=== PATIENT | female | born 2000 | race Hispanic/Latino ===

== ENCOUNTER 2023-04-29 17:53 | Day surgery (SDC) | payer OTHER ==
[2023-04-29 18:34] VITALS: BMI 31.3
[2023-04-29 19:20] LABS: Creatinine, Urine 105.7 mg/dL (47-110)
[2023-04-29 19:37] LABS: #Monocytes 0.6 10x3/uL (0.0-1.1); #Neutrophils 6.2 10x3/uL (1.5-8.4); %Basophils 0.5 % (0.0-2.0); %Eosinophils 0.2 % (0.0-6.0); %Lymphocytes 20.3 % (18.0-47.0); %Monocytes 7.3 % (0.0-10.0); %Neutrophils 71.2 % (40.0-75.0); Hematocrit 26.9 % (34.9-44.5); Hemoglobin 8.6 g/dL (12.0-15.5); Mean Corpuscular Hemoglobin 24.8 pg (27.0-33.0); Mean Corpuscular Volume 77.5 fl (81.6-98.3); Platelet Count 289 10x3/uL (150-450); Red Blood Cell (RBC) Count 3.47 10x6/uL (3.90-5.03); White Blood Cell (WBC) Count 8.7 10x3/uL (3.5-10.5)
[2023-04-29 19:47] LABS: ALT (SGPT) Less than 7 U/L (8-55); AST (SGOT) 20 U/L (5-34); Alkaline Phosphatase 361 U/L (40-110); Anion Gap 12 mmol/L (10-20); BUN (Urea Nitrogen) 6 mg/dL (7.0-18.7); Bilirubin, Total 0.4 mg/dL (0.2-1.2); Calc. Creatinine Clearance 135 mL/min (70-130); Calcium 8.6 mg/dL (7.8-10.44); Carbon Dioxide 18 mmol/L (22-29); Chloride 110 mmol/L (98-107); Estimated GFR 124; Globulin 2.9 g/dL (2.4-3.5); Glucose 102 mg/dL (70-105); Potassium 4.3 mmol/L (3.5-5.1); Protein, Total 5.9 g/dL (6.0-8.3); Sodium 136 mmol/L (136-145)
[2023-04-29] MEDS ORDERED: NIFEdipine XL 30 MG ER.TAB PO SCH (22:30)
[2023-04-29 22:41] VITALS: BP 156/102
== END 2023-04-29 22:45 | disposition home or self-care (01) ==
LOC: CSHLD/OP 17:53
PROVIDERS: ATTEND Family Medicine
DX: O99.891 Other specified diseases and conditions complicating pregnancy (principal); R03.0 Elevated blood-pressure reading, without diagnosis of hypertension; R60.0 Localized edema; Z3A.36 36 weeks gestation of pregnancy
CPT/HCPCS: 36415; 80053; 82570; 84156; 85025; 93970

== ENCOUNTER 2023-05-01 11:16 | Inpatient (IN) | payer OTHER ==
[~2023-05-01 11:16] MED LIST: Bupivacaine 0.25% HCL 30 ML VIAL ONE; Lidocaine 2% MPF 10 ML AMP (For Epidural Use) ONE; ePHEDrine Sulfate 50 MG/10 ML VIAL ONE
[2023-05-01] MEDS ORDERED: Methylergonovine 0.2 MG/ML VIAL IM PRN (12:35)
[2023-05-01] MEDS ORDERED: Misoprostol 200 MCG TAB PR PRN (12:35)
[2023-05-01] MEDS ORDERED: Diphenoxylate HCl/Atropine Tablet PO PRN (12:35)
[2023-05-01] MEDS ORDERED: Promethazine HCl 25 MG/ML VIAL IM PRN (12:35)
[2023-05-01] MEDS ORDERED: Tranexamic Acid 1,000 MG/10 ML VIAL IVP PRN (12:35)
[2023-05-01] MEDS ORDERED: Lorazepam 2 MG/ML VIAL SLOW IVP PRN (12:35)
[2023-05-01] MEDS ORDERED: Ondansetron PF 4 MG/2 ML Vial IVP PRN (12:35)
[2023-05-01] MEDS ORDERED: Acetaminophen 500 MG TAB PO PRN (12:35)
[2023-05-01] MEDS ORDERED: hydrALAZINE 20 MG/ML VIAL SLOW IVP PRN ×2 (12:35)
[2023-05-01] MEDS ORDERED: fentaNYL 50 mcg/mL 1 mL Vial SLOW IVP PRN (12:35)
[2023-05-01] MEDS ORDERED: Lidocaine 1% (PF) 30 ML VIAL SC PRN (12:35)
[2023-05-01] MEDS ORDERED: Calcium Gluc 4.6 MEQ/10 ML (100 MG/ML) SLOW IVP PRN ×2 (12:35→14:00)
[2023-05-01] MEDS ORDERED: Ibuprofen 800 MG TAB PO PRN (12:35)
[2023-05-01] MEDS ORDERED: HYDROcodone/Acetaminophen 5/325 mg Tablet PO PRN (12:35)
[2023-05-01] MEDS ORDERED: Labetalol HCl 100 MG/20 ML VIAL SLOW IVP PRN ×2 (12:35)
[2023-05-01 12:42] VITALS: BMI 32.5
[2023-05-01] MEDS ORDERED: Oxytocin 30 units/NS 500 ML 500 ML IV SCH ×3 (12:45)
[2023-05-01] MEDS ORDERED: Lactated Ringer's 1,000 ML IV SCH (12:45)
[2023-05-01 12:57] LABS: Creatinine, Urine 195.41 mg/dL (47-110)
[2023-05-01 13:15] LABS: #Eosinphils 0.1 10x3/uL (0.0-0.5); #Monocytes 0.9 10x3/uL (0.0-1.1); #Neutrophils 7.1 10x3/uL (1.5-8.4); %Basophils 0.4 % (0.0-2.0); %Lymphocytes 22.1 % (18.0-47.0); %Monocytes 8.7 % (0.0-10.0); %Neutrophils 67.3 % (40.0-75.0); Hemoglobin 8.9 g/dL (12.0-15.5); Mean Corpuscular HGB CONC 31.8 g/dL (32.0-36.0); Mean Corpuscular Hemoglobin 24.7 pg (27.0-33.0); Mean Corpuscular Volume 77.6 fl (81.6-98.3); Mean Platelet Volume 11.8 fl (7.4-10.4); Platelet Count 324 10x3/uL (150-450); RBC Distribution Width 15.1 % (11.5-14.5); Red Blood Cell (RBC) Count 3.61 10x6/uL (3.90-5.03); White Blood Cell (WBC) Count 10.5 10x3/uL (3.5-10.5)
[2023-05-01 13:23] LABS: ALT (SGPT) 7 U/L (8-55); AST (SGOT) 21 U/L (5-34); Alkaline Phosphatase 409 U/L (40-110); Anion Gap 16 mmol/L (10-20); BUN (Urea Nitrogen) 10 mg/dL (7.0-18.7); Bilirubin, Total 0.3 mg/dL (0.2-1.2); Calc. Creatinine Clearance 144 mL/min (70-130); Calcium 8.5 mg/dL (7.8-10.44); Carbon Dioxide 18 mmol/L (22-29); Chloride 108 mmol/L (98-107); Estimated GFR 127; Globulin 2.7 g/dL (2.4-3.5); Glucose 78 mg/dL (70-105); Potassium 4.5 mmol/L (3.5-5.1); Protein, Total 5.7 g/dL (6.0-8.3); Sodium 137 mmol/L (136-145)
[2023-05-01 13:42] LABS: HBSAg Index 0.13 S/CO (0-0.99); Hep B Surf Ag - L&D Non-Reactive S/CO (NonReactive)
[2023-05-01 13:44] LABS: Syphilis Antibody Nonreactive (Nonreactive); Syphilis Antibody Index 0.05 S/CO (<1.00 Non-Reactive)
[2023-05-01] MEDS: hydrALAZINE 20 MG/ML VIAL SLOW IVP PRN ×2 (13:54→17:38)
[2023-05-01] MEDS: Magnesium Sulfate 20 gm/500 ml 20 GM/500 ML BAG IVPB SCH (13:57)
[2023-05-01] MEDS: Penicillin G Potassium 5 MILL.UNITS in Sodium Chloride 0.9% 100 ML IVPB SCH ×2 (15:41→19:05)
[2023-05-01] MEDS: Penicillin G 2.5 MILL.units 2.5 MILL.UNITS in Premix Bag 1 BAG IVPB SCH (23:38)
[2023-05-02] MEDS: Penicillin G 2.5 MILL.units 2.5 MILL.UNITS in Premix Bag 1 BAG IVPB SCH ×5 (05:45→19:44)
[2023-05-02] MEDS: Magnesium Sulfate 20 gm/500 ml 20 GM/500 ML BAG IVPB SCH ×2 (10:26→21:27)
[2023-05-02] MEDS ORDERED: Misoprostol 100 MCG TAB ONE (15:24)
[2023-05-02] MEDS: Misoprostol 100 MCG TAB VAG SCH ×4 (15:35→19:53)
[2023-05-02] MEDS ORDERED: Misoprostol 100 MCG TAB VAG SCH (23:30)
[2023-05-03] MEDS: Penicillin G 2.5 MILL.units 2.5 MILL.UNITS in Premix Bag 1 BAG IVPB SCH ×4 (03:45→16:12)
[2023-05-03] MEDS: Magnesium Sulfate 20 gm/500 ml 20 GM/500 ML BAG IVPB SCH ×2 (06:28→17:03)
[2023-05-03] MEDS ORDERED: fentaNYL/Ropivacaine Epidural 100 ML ONE (09:06)
[2023-05-03] MEDS ORDERED: CEFAZOLIN 2 GM VIAL ONE (17:32)
[2023-05-03] MEDS ORDERED: Azithromycin 500 MG VIAL ONE (17:32)
[2023-05-03] MEDS ORDERED: fentaNYL 50 mcg/mL 1 mL Vial ONE ×3 (18:03→21:33)
[2023-05-03] MEDS ORDERED: diphenhydrAMINE 50 MG/ML VIAL IVP PRN (18:11)
[2023-05-03] MEDS ORDERED: Ondansetron PF 4 MG/2 ML Vial IVP PRN ×3 (18:11→19:56)
[2023-05-03] MEDS ORDERED: Ketorolac Tromethamine 30 MG/ML VIAL IVP PRN (18:11)
[2023-05-03] MEDS ORDERED: Naloxone HCl 0.4 mg/ml Vial IV PRN (18:11)
[2023-05-03] MEDS ORDERED: Promethazine HCl 25 MG/ML VIAL IM PRN ×2 (18:11→19:56)
[2023-05-03] MEDS ORDERED: Meperidine HCl/PF 25 MG/ML VIAL SLOW IVP PRN (18:11)
[2023-05-03] MEDS ORDERED: Moisturizing Cream (Eucerin) 113 GM JAR TOP PRN (18:11)
[2023-05-03] MEDS ORDERED: Naloxone HCl 0.4 mg/ml Vial IVP PRN ×2 (18:11)
[2023-05-03] MEDS ORDERED: Promethazine HCl 25 MG SUPP PR PRN (18:11)
[2023-05-03] MEDS ORDERED: Dexamethasone 4 mg/ml Vial ONE (18:15)
[2023-05-03] MEDS ORDERED: Communication Order-Pharmacy FS SCH (18:15)
[2023-05-03] MEDS ORDERED: Oxytocin 10 UNITS/ML VIAL ONE (18:29)
[2023-05-03] MEDS: Carboprost 250 MCG/ML AMP IM PRN ×2 (18:36→18:50)
[2023-05-03] MEDS ORDERED: Misoprostol 200 MCG TAB ONE (18:37)
[2023-05-03] MEDS ORDERED: Midazolam HCl 2 mg/2 ml Vial ONE (18:43)
[2023-05-03] MEDS: fentaNYL 50 mcg/mL 1 mL Vial SLOW IVP PRN ×2 (19:46→21:34)
[2023-05-03] MEDS ORDERED: Labetalol HCl 100 MG/20 ML VIAL SLOW IVP PRN ×2 (19:56→22:50)
[2023-05-03] MEDS ORDERED: Bisacodyl 10 MG SUPP PR PRN (19:56)
[2023-05-03] MEDS ORDERED: Calcium Gluc 4.6 MEQ/10 ML (100 MG/ML) SLOW IVP PRN (19:56)
[2023-05-03] MEDS ORDERED: diphenhydrAMINE 25 MG CAP PO PRN (19:56)
[2023-05-03] MEDS ORDERED: Simethicone Chewable 80 MG TAB PO PRN (19:56)
[2023-05-03] MEDS ORDERED: hydrALAZINE 20 MG/ML VIAL SLOW IVP PRN ×2 (19:56→22:49)
[2023-05-03] MEDS ORDERED: Boostrix 0.5 ML (Tdap) VIAL (>/=7 yrs of age) IM ONE (19:56)
[2023-05-03] MEDS ORDERED: Lanolin Ointment 7 GM TUBE TOP PRN (19:56)
[2023-05-03] MEDS ORDERED: Lorazepam 2 MG/ML VIAL SLOW IVP PRN (19:56)
[2023-05-03] MEDS: Labetalol HCl 100 MG TAB PO SCH (21:47)
[2023-05-03] MEDS ORDERED: Diphenoxylate HCl/Atropine Tablet PO PRN (22:49)
[2023-05-03 23:16] LABS: Hematocrit 29.7 % (34.9-44.5); Hemoglobin 9.4 g/dL (12.0-15.5)
[2023-05-04] MEDS: Ketorolac Tromethamine 30 MG/ML VIAL IVP SCH ×3 (01:13→13:13)
[2023-05-04] MEDS ORDERED: Magnesium Sulfate 20 gm/500 ml 20 GM/500 ML BAG ONE ×2 (02:35→12:06)
[2023-05-04] MEDS: Magnesium Sulfate 20 gm/500 ml 20 GM/500 ML BAG IVPB SCH (02:39)
[2023-05-04 04:28] LABS: Hematocrit 27.5 % (34.9-44.5); Hemoglobin 8.7 g/dL (12.0-15.5); Mean Corpuscular HGB CONC 31.6 g/dL (32.0-36.0); Mean Corpuscular Hemoglobin 24.9 pg (27.0-33.0); Mean Corpuscular Volume 78.8 fl (81.6-98.3); Mean Platelet Volume 11.4 fl (7.4-10.4); Platelet Count 328 10x3/uL (150-450); RBC Distribution Width 15.5 % (11.5-14.5); Red Blood Cell (RBC) Count 3.49 10x6/uL (3.90-5.03); White Blood Cell (WBC) Count 20.5 10x3/uL (3.5-10.5)
[2023-05-04] MEDS: Labetalol HCl 100 MG TAB PO SCH ×3 (05:50→22:25)
[2023-05-04] MEDS: Ferrous Sulfate 325 MG TAB PO SCH ×3 (09:12→22:26)
[2023-05-04] MEDS: Prenatal Vitamin 1 TAB PO SCH (09:12)
[2023-05-04] MEDS: Docusate 100 MG CAP PO SCH ×3 (09:12→22:25)
[2023-05-04] MEDS: HYDROcodone/Acetaminophen 5/325 mg Tablet PO PRN ×3 (09:17→18:40)
[2023-05-04] MEDS: Ibuprofen 800 MG TAB PO SCH (22:26)
[2023-05-05] MEDS: HYDROcodone/Acetaminophen 5/325 mg Tablet PO PRN ×5 (00:12→22:35)
[2023-05-05] MEDS: Ibuprofen 800 MG TAB PO SCH ×3 (06:01→21:15)
[2023-05-05] MEDS: Labetalol HCl 100 MG TAB PO SCH ×3 (06:02→21:15)
[2023-05-05] MEDS: Ferrous Sulfate 325 MG TAB PO SCH ×2 (09:01→21:15)
[2023-05-05] MEDS: Prenatal Vitamin 1 TAB PO SCH ×2 (09:01→09:07)
[2023-05-05] MEDS: Docusate 100 MG CAP PO SCH ×2 (09:01→21:15)
[2023-05-06] MEDS: Ibuprofen 800 MG TAB PO SCH (05:02)
[2023-05-06] MEDS: HYDROcodone/Acetaminophen 5/325 mg Tablet PO PRN ×2 (05:02→10:08)
[2023-05-06] MEDS: Labetalol HCl 100 MG TAB PO SCH (05:02)
[2023-05-06] MEDS: Prenatal Vitamin 1 TAB PO SCH (08:33)
[2023-05-06] MEDS: Ferrous Sulfate 325 MG TAB PO SCH (08:33)
[2023-05-06] MEDS: Docusate 100 MG CAP PO SCH (08:33)
[2023-05-06 11:47] VITALS: BP 141/89; TEMP 98.5
== END 2023-05-06 12:50 | disposition home or self-care (01) | DRG 788 ==
LOC: CSHLD 11:16 → CSHPED 05-04 20:40
PROVIDERS: ADMIT Family Medicine; ATTEND Family Medicine
PROC: 10D00Z1 Extraction of Products of Conception, Low, Open Approach (ICD-10-PCS; principal; 2023-05-03)
PROC: 3E0P7VZ Introduction of Hormone into Female Reproductive, Via Natural or Artificial Opening (ICD-10-PCS; 2023-05-03)
PROC: 10907ZC Drainage of Amniotic Fluid, Therapeutic from Products of Conception, Via Natural or Artificial Opening (ICD-10-PCS; 2023-05-03)
PROC: 10H07YZ Insertion of Other Device into Products of Conception, Via Natural or Artificial Opening (ICD-10-PCS; 2023-05-03)
DX: O14.14 Severe pre-eclampsia complicating childbirth (principal); Z3A.37 37 weeks gestation of pregnancy; Z37.0 Single live birth; O62.1 Secondary uterine inertia; O69.81X0 Labor and delivery complicated by cord around neck, without compression, not applicable or unspecified
CPT/HCPCS: 36415; 51702; 80053; 82570; 84156; 85014; 85018; 85025; 85027; 86780; 86850; 86900; 86901; 87340; 99284; J0360; J0456; J1100; J1885; J2250; J2540; J2590; J3010; J3475; J3490; S0020

== ENCOUNTER 2023-05-08 03:59 | Inpatient (IN) | payer OTHER ==
[2023-05-08] MEDS ORDERED: Labetalol HCl 100 MG/20 ML VIAL ONE (04:33)
[2023-05-08 04:54] LABS: #Basophils 0.1 10x3/uL (0.0-0.2); #Eosinphils 0.3 10x3/uL (0.0-0.5); #Monocytes 0.7 10x3/uL (0.0-1.1); #Neutrophils 5.5 10x3/uL (1.5-8.4); %Basophils 0.7 % (0.0-2.0); %Eosinophils 3.6 % (0.0-6.0); %Lymphocytes 26.1 % (18.0-47.0); %Monocytes 8.2 % (0.0-10.0); %Neutrophils 61.1 % (40.0-75.0); ALT (SGPT) 58 U/L (8-55); AST (SGOT) 87 U/L (5-34); Albumin 3.2 g/dL (3.5-5.0); Alkaline Phosphatase 225 U/L (40-110); Anion Gap 15 mmol/L (10-20); BUN (Urea Nitrogen) 9 mg/dL (7.0-18.7); Bilirubin, Total 0.4 mg/dL (0.2-1.2); Calc. Creatinine Clearance 0 mL/min (70-130); Calcium 8.5 mg/dL (7.8-10.44); Carbon Dioxide 18 mmol/L (22-29); Chloride 108 mmol/L (98-107); Estimated GFR 126; Globulin 2.5 g/dL (2.4-3.5); Glucose 83 mg/dL (70-105); Hematocrit 24.2 % (34.9-44.5); Hemoglobin 7.6 g/dL (12.0-15.5); Magnesium 1.6 mg/dL (1.6-2.6); Mean Corpuscular HGB CONC 31.4 g/dL (32.0-36.0); Mean Corpuscular Hemoglobin 25.2 pg (27.0-33.0); Mean Corpuscular Volume 80.1 fl (81.6-98.3); Mean Platelet Volume 9.7 fl (7.4-10.4); Platelet Count 460 10x3/uL (150-450); Protein, Total 5.7 g/dL (6.0-8.3); RBC Distribution Width 16.3 % (11.5-14.5); Red Blood Cell (RBC) Count 3.02 10x6/uL (3.90-5.03); Sodium 136 mmol/L (136-145); White Blood Cell (WBC) Count 8.9 10x3/uL (3.5-10.5)
[2023-05-08 05:00] LABS: Troponin I 0.016 ng/mL (< 0.028)
[2023-05-08] MEDS ORDERED: Magnesium 2 GM/50 ML BAG (IN WATER) ONE (05:30)
[2023-05-08] MEDS ORDERED: traMADol HCl 50 MG TAB PO PRN (06:04)
[2023-05-08] MEDS ORDERED: Milk Of Magnesia 30 ML UDCUP PO PRN (06:04)
[2023-05-08] MEDS ORDERED: Ondansetron PF 4 MG/2 ML Vial IVP PRN (06:04)
[2023-05-08] MEDS ORDERED: Bisacodyl 10 MG SUPP PR PRN (06:04)
[2023-05-08] MEDS ORDERED: Boostrix 0.5 ML (Tdap) VIAL (>/=7 yrs of age) IM ONE (06:04)
[2023-05-08] MEDS ORDERED: Calcium Gluc 4.6 MEQ/10 ML (100 MG/ML) SLOW IVP PRN (06:08)
[2023-05-08] MEDS ORDERED: hydrALAZINE 20 MG/ML VIAL SLOW IVP PRN ×2 (06:08)
[2023-05-08] MEDS ORDERED: Lorazepam 2 MG/ML VIAL SLOW IVP PRN (06:08)
[2023-05-08] MEDS ORDERED: Labetalol HCl 100 MG/20 ML VIAL SLOW IVP PRN ×2 (06:08)
[2023-05-08] MEDS ORDERED: Magnesium Sulfate 20 gm/500 ml 20 GM/500 ML BAG IVPB SCH (06:15)
[2023-05-08] MEDS ORDERED: Acetaminophen 500 MG TAB PO PRN (06:27)
[2023-05-08 07:13] VITALS: BMI 29.2
[2023-05-08] MEDS: Docusate 100 MG CAP PO SCH ×2 (09:00→21:05)
[2023-05-08] MEDS: Ferrous Sulfate 325 MG TAB PO SCH ×2 (09:00→17:00)
[2023-05-08] MEDS: NIFEdipine XL 30 MG ER.TAB PO SCH (09:00)
[2023-05-08] MEDS ORDERED: Labetalol HCl 200 MG TAB PO SCH (10:00)
[2023-05-08] MEDS: Labetalol HCl 200 MG TAB PO SCH ×2 (15:09→21:05)
[2023-05-08] MEDS: Ibuprofen 800 MG TAB PO SCH ×2 (15:10→21:05)
[2023-05-08 17:57] LABS: #Eosinphils 0.2 10x3/uL (0.0-0.5); #Monocytes 0.6 10x3/uL (0.0-1.1); %Basophils 0.4 % (0.0-2.0); %Eosinophils 2.6 % (0.0-6.0); %Lymphocytes 21.4 % (18.0-47.0); %Monocytes 7.9 % (0.0-10.0); %Neutrophils 67.3 % (40.0-75.0); Hematocrit 24.5 % (34.9-44.5); Hemoglobin 7.6 g/dL (12.0-15.5); Mean Corpuscular Hemoglobin 25.2 pg (27.0-33.0); Mean Corpuscular Volume 81.4 fl (81.6-98.3); Mean Platelet Volume 9.3 fl (7.4-10.4); Platelet Count 492 10x3/uL (150-450); RBC Distribution Width 16.6 % (11.5-14.5); Red Blood Cell (RBC) Count 3.01 10x6/uL (3.90-5.03); White Blood Cell (WBC) Count 7.4 10x3/uL (3.5-10.5)
[2023-05-08 18:18] LABS: ALT (SGPT) 46 U/L (8-55); AST (SGOT) 58 U/L (5-34); Alkaline Phosphatase 208 U/L (40-110); Anion Gap 15 mmol/L (10-20); BUN (Urea Nitrogen) 7 mg/dL (7.0-18.7); Bilirubin, Total 0.3 mg/dL (0.2-1.2); Calc. Creatinine Clearance 122 mL/min (70-130); Calcium 8.4 mg/dL (7.8-10.44); Carbon Dioxide 19 mmol/L (22-29); Chloride 108 mmol/L (98-107); Estimated GFR 120; Globulin 3.1 g/dL (2.4-3.5); Glucose 101 mg/dL (70-105); Potassium 4.9 mmol/L (3.5-5.1); Protein, Total 6.1 g/dL (6.0-8.3); Sodium 137 mmol/L (136-145)
[2023-05-08] MEDS ORDERED: HYDROcodone/Acetaminophen 5/325 mg Tablet PO PRN (19:23)
[2023-05-08] MEDS ORDERED: Furosemide 20 MG/2 ML VIAL SLOW IVP SCH (20:00)
[2023-05-09 00:37] LABS: #Eosinphils 0.2 10x3/uL (0.0-0.5); #Monocytes 0.6 10x3/uL (0.0-1.1); #Neutrophils 4.1 10x3/uL (1.5-8.4); %Basophils 0.6 % (0.0-2.0); %Eosinophils 3.3 % (0.0-6.0); %Lymphocytes 26.1 % (18.0-47.0); %Monocytes 8.9 % (0.0-10.0); %Neutrophils 60.5 % (40.0-75.0); Hematocrit 23.3 % (34.9-44.5); Hemoglobin 7.4 g/dL (12.0-15.5); Mean Corpuscular HGB CONC 31.8 g/dL (32.0-36.0); Mean Corpuscular Hemoglobin 25.6 pg (27.0-33.0); Mean Corpuscular Volume 80.6 fl (81.6-98.3); Mean Platelet Volume 9.3 fl (7.4-10.4); Platelet Count 487 10x3/uL (150-450); RBC Distribution Width 16.6 % (11.5-14.5); Red Blood Cell (RBC) Count 2.89 10x6/uL (3.90-5.03); White Blood Cell (WBC) Count 6.7 10x3/uL (3.5-10.5)
[2023-05-09 00:57] LABS: ALT (SGPT) 42 U/L (8-55); AST (SGOT) 47 U/L (5-34); Albumin 3.1 g/dL (3.5-5.0); Alkaline Phosphatase 205 U/L (40-110); Anion Gap 14 mmol/L (10-20); BUN (Urea Nitrogen) 8 mg/dL (7.0-18.7); Bilirubin, Total 0.3 mg/dL (0.2-1.2); Calc. Creatinine Clearance 121 mL/min (70-130); Calcium 8.3 mg/dL (7.8-10.44); Carbon Dioxide 20 mmol/L (22-29); Chloride 105 mmol/L (98-107); Estimated GFR 118; Globulin 2.9 g/dL (2.4-3.5); Glucose 108 mg/dL (70-105); Potassium 4.3 mmol/L (3.5-5.1); Sodium 135 mmol/L (136-145)
[2023-05-09 04:29] LABS: #Eosinphils 0.3 10x3/uL (0.0-0.5); #Monocytes 0.7 10x3/uL (0.0-1.1); #Neutrophils 3.9 10x3/uL (1.5-8.4); %Basophils 0.6 % (0.0-2.0); %Eosinophils 3.7 % (0.0-6.0); %Lymphocytes 29.2 % (18.0-47.0); %Monocytes 10.3 % (0.0-10.0); %Neutrophils 55.6 % (40.0-75.0); Hematocrit 23.2 % (34.9-44.5); Hemoglobin 7.2 g/dL (12.0-15.5); Mean Corpuscular Volume 80.6 fl (81.6-98.3); Mean Platelet Volume 9.3 fl (7.4-10.4); Platelet Count 481 10x3/uL (150-450); RBC Distribution Width 16.9 % (11.5-14.5); Red Blood Cell (RBC) Count 2.88 10x6/uL (3.90-5.03)
[2023-05-09 04:36] LABS: ALT (SGPT) 38 U/L (8-55); AST (SGOT) 39 U/L (5-34); Albumin 2.9 g/dL (3.5-5.0); Alkaline Phosphatase 195 U/L (40-110); Anion Gap 13 mmol/L (10-20); BUN (Urea Nitrogen) 7 mg/dL (7.0-18.7); Bilirubin, Total 0.2 mg/dL (0.2-1.2); Calc. Creatinine Clearance 126 mL/min (70-130); Calcium 7.9 mg/dL (7.8-10.44); Carbon Dioxide 20 mmol/L (22-29); Chloride 106 mmol/L (98-107); Estimated GFR 124; Globulin 2.7 g/dL (2.4-3.5); Glucose 99 mg/dL (70-105); Potassium 4.1 mmol/L (3.5-5.1); Protein, Total 5.6 g/dL (6.0-8.3); Sodium 135 mmol/L (136-145)
[2023-05-09] MEDS: Ibuprofen 800 MG TAB PO SCH ×3 (06:19→21:35)
[2023-05-09] MEDS: Ferrous Sulfate 325 MG TAB PO SCH ×2 (08:25→18:24)
[2023-05-09] MEDS: Docusate 100 MG CAP PO SCH ×2 (08:25→21:35)
[2023-05-09] MEDS: Labetalol HCl 200 MG TAB PO SCH ×3 (08:25→21:35)
[2023-05-09] MEDS: NIFEdipine XL 30 MG ER.TAB PO SCH (08:26)
[2023-05-10] MEDS: Ibuprofen 800 MG TAB PO SCH ×2 (06:30→13:54)
[2023-05-10] MEDS: Ferrous Sulfate 325 MG TAB PO SCH (07:57)
[2023-05-10] MEDS: Docusate 100 MG CAP PO SCH (07:58)
[2023-05-10] MEDS: Labetalol HCl 200 MG TAB PO SCH ×2 (07:58→13:54)
[2023-05-10] MEDS: NIFEdipine XL 30 MG ER.TAB PO SCH (07:58)
[2023-05-10 11:35] VITALS: BP 122/70; TEMP 97.6
== END 2023-05-10 14:50 | disposition home or self-care (01) | DRG 776 ==
LOC: CSHERS 03:59 → CSHLD 06:07 → CSHPP 05-09 05:50
PROVIDERS: ADMIT Family Medicine; ATTEND Family Medicine
DX: O14.15 Severe pre-eclampsia, complicating the puerperium (principal); O90.89 Other complications of the puerperium, not elsewhere classified; R06.02 Shortness of breath; Z98.891 History of uterine scar from previous surgery
CPT/HCPCS: 36415; 71045; 80053; 82570; 83615; 83735; 83880; 84156; 84443; 84484; 84550; 85025; 93005; J1940; J3475